=== PATIENT | female | born 2000 | race Caucasian/White ===

== ENCOUNTER 2023-02-07 10:31 | Day surgery (SDC) | payer BC ==
[~2023-02-07] VITALS: Ht 154.9 cm; Wt 56.7 kg
[2023-02-07] MEDS ORDERED: ACETAMINOPHEN I.V. 1000 MG 100 ML IV ONE (13:23)
[2023-02-07] MEDS ORDERED: PROPOFOL DRIP 10 MG/ML 100ML BOTTLE IV ONE (13:24)
[2023-02-07] MEDS ORDERED: fentaNYL CITRATE/PF 100 MCG/2 ML AMP ONE (13:24)
[2023-02-07] MEDS ORDERED: NS IRRIG SOLN 1000 ML IR ONE (13:24)
[2023-02-07 13:25] VITALS: O2SAT 99
[2023-02-07] MEDS ORDERED: METHYLERGONOVINE MALEATE 0.2 MG/ML AMP ONE (13:57)
[2023-02-07 17:40] VITALS: BP_SYST 115; PULSE 98; RESP 16
== END 2023-02-07 16:25 | disposition home or self-care (01) ==
LOC: SDS 10:31 → SMU 10:33 → SDS 16:25
PROVIDERS: ATTEND Obstetrics & Gynecology
DX: O02.1 Missed abortion (principal)
CPT/HCPCS: 87081; 59820; 88305; J2210; J2704; J3010; J0131